=== PATIENT | female | born 1955 | race Caucasian/White ===

== ENCOUNTER 2017-11-20 16:59 | Emergency (ER) | payer OTHER ==
[~2017-11-20] VITALS: Ht 162.6 cm; Wt 66.8 kg
[2017-11-20 17:58] LABS: BASOPHIL (%) 0.4 % (0-1); EOSINOPHIL (%) 1.5 % (0-5); EOSINOPHIL COUNT 0.1 K/uL (0-0.3); HEMATOCRIT 47.2 % (36.0-46.0); HEMOGLOBIN 16.2 G/DL (11.9-15.5); IMMATURE GRANULOCYTE (%) 0.3 % (0.0-0.7); LYMPHOCYTE (%) 21.3 % (15-42); LYMPHOCYTE COUNT 1.7 K/uL (1.0-2.8); MCH 29.5 PG (29.0-34.0); MCHC 34.3 G/DL (30.0-36.0); MONOCYTE (%) 7.9 % (3-12); MONOCYTE COUNT 0.6 K/uL (0-0.8); NEUTROPHIL (%) 68.6 % (45-76); NEUTROPHIL COUNT 5.5 K/uL (1.8-6.4); PLATELET COUNT 197 K/uL (156-360); RBC DIS.WIDTH-CV 11.9 % (11.8-14.6); RBC DIS.WIDTH-SD 37.4 % (39-53); RED BLOOD COUNT 5.49 M/uL (3.80-5.20)
[2017-11-20 18:06] LABS: PTT 26.5 SEC (25-37)
[2017-11-20 18:16] LABS: ALBUMIN 4.8 g/dL (3.2-4.8)
[2017-11-20 18:17] LABS: CHLORIDE 106 mEq/L (99-109); SODIUM 140 mEq/L (136-147)
[2017-11-20 18:18] LABS: TROP-I INTERPRETATION NEGATIVE; TROPONIN-I < 0.01 ng/mL (0.0-0.30)
[2017-11-20 18:19] LABS: GLUCOSE 102 mg/dL (70-99); TOTAL PROTEIN 8.4 g/dL (6.4-8.3)
[2017-11-20 18:21] LABS: TOTAL BILIRUBIN 0.5 mg/dL (0.0-1.0)
[2017-11-20 18:22] LABS: ALKALINE PHOSPHATASE 86 IU/L (3-129)
[2017-11-20 18:23] LABS: CREATININE 0.9 mg/dL (0.6-1.3); GFR ESTIMATE (CALCULATED) > 59 mL/min/
[2017-11-20 18:24] LABS: AST (GOT) 18 IU/L (2-34); UREA NITROGEN (BUN) 14 mg/dL (9-23)
[2017-11-20 18:25] LABS: ALT (GPT) 17 IU/L (3-49)
[2017-11-20 18:26] LABS: LIPASE 49 U/L (1.0-51.0)
[2017-11-20 20:47] VITALS: BP 149/80
== END 2017-11-20 20:54 | disposition home or self-care (01) ==
LOC: EME 16:59
PROVIDERS: Emergency Medicine
DX: R00.2 Palpitations (principal); I49.1 Atrial premature depolarization; F32.9 Major depressive disorder, single episode, unspecified
CPT/HCPCS: 71045; 80053; 83690; 83880; 84484; 85025; 85610; 85730; 87493; 93005; 99281; 99285; J7030